=== PATIENT | female | born 1940 | race Caucasian/White ===

== ENCOUNTER → 2024-07-15 | Outpatient (CLI) | payer OTHER, MEDICAID, SELFPAY ==
[2024-07-15 09:38] LABS: Collection Type, Urine Clean Catch
[2024-07-15 10:10] LABS: Basophils % (Auto) 1 % (0-2.5); Eosinophils # (Auto) 0.1 Thou/mm3 (0.0-0.5); Eosinophils % (Auto) 2 % (0-10); Hematocrit 36.8 % (36.0-46.0); Immature Granulocytes % (Auto) 0 % (0-0); Immature Granulocytes Auto 0.01 Thou/mm3 (0.00-0.00); Lymphocytes # (Auto) 1.7 Thou/mm3 (1.0-4.8); Lymphocytes % (Auto) 39 % (10-50); Mean Corpuscular HGB Conc 32.6 g/dl (31.0-37.0); Mean Corpuscular Hemoglobin 26.5 pg (25.0-35.0); Mean Corpuscular Volume 81 fL (80-100); Monocytes # (Auto) 0.5 Thou/mm3 (0.0-0.8); Monocytes % (Auto) 12 % (0-12); Neutrophils % (Auto) 47 % (37-80); Nucleated Red Blood Cell % 0 /100 WBC (0); Platelet Count 153 Thou/mm3 (140-440); RDW Standard Deviation 43.6 fL (36.4-46.3); Red Blood Count 4.52 Miln/mm3 (4.00-5.20); White Blood Count 4.4 Thou/mm3 (3.6-11.0)
[2024-07-15 10:19] LABS: Glucose Estimated Average 120 mg/dL (80-131); Hemoglobin A1C 5.8 % Hgb (4.8-6.0)
[2024-07-15 10:20] LABS: Bilirubin,Urine Negative (Negative); Blood,Urine Negative (Negative); Clarity,Urine Clear (Clear/Hazy); Color,Urine Lt-Yellow (Lt Yel-Yel); Glucose, Urine Negative (Negative); Ketones,Urine Negative (Negative); Leukocyte Esterase,Urine Positive (Negative); Nitrite,Urine Negative (Negative); PH,Urine 6.5 (5.0-7.0); Protein,Urine Negative (Neg - Trace); RBC,Urine 3 /hpf (0-3); Specific Gravity,Urine 1.015 (1.001-1.035); Squamous Epithelial Cell,Urine 2 /hpf (0-5); Urobilinogen,Urine Negative mg/dL (0.0-1.0); WBC,Urine 3 /hpf (0-5)
[2024-07-15 10:46] LABS: Alanine Aminotransferase 11 U/L (10-49); Alkaline Phosphatase 54 U/L (46-116); Anion Gap 5 (7-16); Aspartate Amino Transferase 12 U/L (0-34); BUN/Creatinine Ratio 18 Ratio (12-20); Bilirubin,Total 0.4 mg/dL (0.3-1.2); Blood Urea Nitrogen 14 mg/dL (9-23); Cardiac Risk Estimate 4.3 RATIO (3.7-5.6); Chloride 108 mMol/L (98-107); Cholesterol 173 mg/dL (132-200); Creatinine (Component) 0.8 mg/dL (0.6-1.3); Glucose 93 mg/dL (74-106); HDL Cholesterol 40 mg/dL (40-60); LDL Cholesterol,Calculated 111 mg/dL (0-130); Osmolality,Calculated 283 (275-295); Potassium 4.3 mMol/L (3.4-5.1); Sodium 142 mMol/L (136-145); Thyroid Stimulating Hormone 5.11 uIU/mL (0.55-4.78); Triglycerides 109 mg/dL (30-150); eGFR > 60 See Note
== END | disposition home or self-care (01) ==
LOC: COPL 09:08
PROVIDERS: PCP Family Medicine; Referring Provider Family Medicine; Visit Provider Family Medicine
DX: Z00.00 Encounter for general adult medical examination without abnormal findings (principal); E78.2 Mixed hyperlipidemia; Z83.3 Family history of diabetes mellitus
CPT/HCPCS: 36415; 80053; 80061; 81001; 83036; 84443; 85025

== ENCOUNTER → 2024-09-01 | Outpatient (CLI) | payer OTHER, MEDICAID, SELFPAY ==
--- NOTE | 2024-09-01 13:30 | XR_ITS ---
Examination: Screening digital mammography, bilateral Computer aided detection 3-D breast Tomosynthesis, bilateral Date and time of exam: August 1302 hours Compared to mammograms dating to June 24, 2023 Indication: Screening Technique: Nonmagnified MLO, CC views of the breasts to been obtained, reconstructed from 3-D Tomosynthesis images. R2 computer aided detection program utilized for evaluation of suspicious masses and/or abnormal calcifications. 3-D Tomosynthesis images obtained. Findings: The breasts are heterogeneously dense, which may obscure small masses Grouped microcalcifications upper outer left breast posterior depth 10 mm focal asymmetry upper right breast anterior depth Impression: BI-RADS Category 0: Incomplete: Need additional imaging evaluation 10 mm focal asymmetry upper outer right breast anterior depth, recommend follow-up spot tomographic views Recommend follow-up spot magnification views of grouped microcalcifications upper outer left breast Recommend bilateral breast sonography follow-up to complete the workup.
--- NOTE | 2024-09-01 13:45 | XR_ITS ---
Examination: Bone densitometry Date and time of exam:September 01, 2024 1322 hours INDICATIONS: Hysterectomy age 22 left breast carcinoma diagnosis Technique: Lumbar spine and hip total bone mineralization values of an calculated. Peak reference and age match control results have been displayed. Findings: Lumbar spine total bone mineralization is1.104 gm/cm2. This is 0.5 standard deviations above peak reference. This is 3.3 standard deviations above age-matched controls. Hip total bone mineralization is 0.863 gm/cm2 This is 0.7 standard deviations below peak reference. This is 1.5 standard deviations above age-matched controls Impression: There is normal mineralization based on lumbar spine measurements. There is normal mineralization based on hip measurements
== END | disposition home or self-care (01) ==
PROVIDERS: PCP Family Medicine; Referring Provider Family Medicine; Visit Provider Family Medicine
DX: Z12.31 Encounter for screening mammogram for malignant neoplasm of breast (principal); R92.0 Mammographic microcalcification found on diagnostic imaging of breast; N64.89 Other specified disorders of breast; M81.0 Age-related osteoporosis without current pathological fracture
CPT/HCPCS: 77063; 77067; 77080

== ENCOUNTER → 2024-09-30 | Outpatient (CLI) | payer OTHER, MEDICAID, SELFPAY ==
--- NOTE | 2024-09-30 15:30 | XR_ITS ---
Examination: MRI lumbar spine without contrast Date and time of exam: September 30, 2024 1535 hours Comparison March 03, 2024 INDICATIONS: Low back pain radiating down both legs numbness and paresthesias in both legs beginning 15 years ago Technique: Multiple MRI axial and sagittal sections lumbar spine. Sagittal T2-weighted images, TR 3500, TE 118 T1 weighted transverse sections, TR 688 T8.5, T2-weighted sagittal sections T1 weighted sagittal sections TR 621, TE 30 T2 axial sections, TR 4, 190, TE 84. Findings: Grade 1 anterolisthesis L4 on L5 No lumbar fracture Normal marrow signal lumbar vertebral bodies Diffuse lumbar disc desiccation Mild to moderate disc narrowing L3-L4, L4-L5 L5-S1 5 mm central lumbar disc bulge extending to the right foraminal region with moderate right L5 ganglionic compression L4-L5 severe overall spinal stenosis, axial image 5, 6 mm central lumbar disc bulge, facet arthropathy and thickening of ligamentum flavum with mild bilateral L4 ganglionic compression L3-L4 foraminal disc bulges but no ganglionic compression L2-L3 no disc protrusion The longitudinal disc protrusion IMPRESSION: L5-S1 5 mm simple lumbar disc bulge extending to the right foraminal region with moderate right L5 ganglionic compression L4-L5 severe overall spinal stenosis, including mild bilateral L4 ganglionic compression
== END | disposition home or self-care (01) ==
LOC: SMRI 14:38
PROVIDERS: PCP Nurse Practitioner Family; Referring Provider Nurse Practitioner Family; Visit Provider Nurse Practitioner Family
DX: G95.20 Unspecified cord compression (principal); M48.061 Spinal stenosis, lumbar region without neurogenic claudication
CPT/HCPCS: 72148

== ENCOUNTER → 2024-10-03 | Outpatient (CLI) | payer OTHER, MEDICAID, SELFPAY ==
--- NOTE | 2024-10-03 10:00 | XR_ITS ---
Examination: Breast ultrasound complete, bilateral Date and time of exam: October 03, 2024 1042 hours INDICATIONS: Mammogram September 01, 2024 10 mm focal asymmetry upper outer right breast Technique: Real-time grayscale ultrasonographic imaging bilateral breasts, including all 4 quadrants as well as nipple retroareolar and axillary regions. Findings: Sonographic images right breast 10:00 nodule circumscribed 5 x 6 Sonographic images left breast 3:00 nodule lobular margins 11 x 7 mm IMPRESSION: BI-RADS Category 3: Probably benign findings One additional bilateral 6 month breast sonography follow-up is needed to document stability of nodules described above
--- NOTE | 2024-10-03 11:00 | XR_ITS ---
Examination: Diagnostic digital mammography, bilateral Computer aided detection 3-D breast Tomosynthesis, bilateral Date and time of exam: October 03, 2024 1109 hours INDICATIONS: Mammogram September 01, 2024 10 mm focal asymmetry upper outer right breast, grouped microcalcifications upper outer left breast Technique: Nonmagnified MLO, CC views of the breasts to been obtained, reconstructed from 3-D Tomosynthesis images. R2 computer aided detection program utilized for evaluation of suspicious masses and/or abnormal calcifications. 3-D Tomosynthesis images obtained. Findings: The breasts are heterogeneously dense, which may obscure small masses No suspicious mass right breast confirmed Grouped suspicious microcalcifications are confirmed upper outer left breast Impression: BI-RADS Category 4: Suspicious for malignancy Suspicious grouped microcalcifications are confirmed upper outer left breast, biopsy is needed to exclude breast carcinoma, these calcifications are amenable to stereotactic breast biopsy for diagnosis.
== END | disposition home or self-care (01) ==
PROVIDERS: PCP Family Medicine; Referring Provider Family Medicine; Visit Provider Family Medicine
DX: R92.343 Mammographic extreme density, bilateral breasts (principal); R92.0 Mammographic microcalcification found on diagnostic imaging of breast; N63.25 Unspecified lump in the left breast, overlapping quadrants; N63.11 Unspecified lump in the right breast, upper outer quadrant
CPT/HCPCS: 76641; 77062; 77066; G0279

== ENCOUNTER → 2024-10-26 | Outpatient (CLI) | payer OTHER, MEDICAID, SELFPAY ==
[2024-10-26 08:39] LABS: Alanine Aminotransferase 8 U/L (10-49); Albumin, Serum 3.9 gm/dL (3.4-4.8); Albumin/Globulin Ratio 2.2 (1.2-2.2); Alkaline Phosphatase 53 U/L (46-116); Anion Gap 7 (7-16); BUN/Creatinine Ratio 16 Ratio (12-20); Bilirubin,Total 0.4 mg/dL (0.3-1.2); Blood Urea Nitrogen 11 mg/dL (9-23); Calcium 8.7 mg/dL (8.3-10.6); Calcium (Corrected) 8.8 mg/dL (8.5-10.1); Carbon Dioxide 28.6 mMol/L (20.0-31.0); Cardiac Risk Estimate 3.8 RATIO (3.7-5.6); Chloride 110 mMol/L (98-107); Cholesterol 141 mg/dL (132-200); Creatinine (Component) 0.7 mg/dL (0.6-1.3); Globulin 1.8 gm/dL (2.3-3.5); Glucose 96 mg/dL (74-106); HDL Cholesterol 37 mg/dL (40-60); LDL Cholesterol,Calculated 85 mg/dL (0-130); Osmolality,Calculated 289 (275-295); Potassium 4.1 mMol/L (3.4-5.1); Sodium 146 mMol/L (136-145); Total Protein 5.7 gm/dL (5.7-8.2); Triglycerides 93 mg/dL (30-150); eGFR > 60 See Note
== END | disposition home or self-care (01) ==
LOC: COPL 06:56
PROVIDERS: PCP Family Medicine; Referring Provider Family Medicine; Visit Provider Family Medicine
DX: E78.2 Mixed hyperlipidemia (principal)
CPT/HCPCS: 36415; 80053; 80061

== ENCOUNTER → 2024-10-27 | Outpatient (CLI) | payer OTHER, MEDICAID, SELFPAY ==
[2024-10-26 09:00] LABS: Basophils % (Auto) 1 % (0-2.5); Eosinophils # (Auto) 0.1 Thou/mm3 (0.0-0.5); Eosinophils % (Auto) 1 % (0-10); Hematocrit 35.1 % (36.0-46.0); Hemoglobin 11.4 g/dL (12.0-16.0); Immature Granulocytes % (Auto) 0 % (0-0); Lymphocytes # (Auto) 1.5 Thou/mm3 (1.0-4.8); Lymphocytes % (Auto) 36 % (10-50); Mean Corpuscular HGB Conc 32.5 g/dl (31.0-37.0); Mean Corpuscular Hemoglobin 27.4 pg (25.0-35.0); Mean Corpuscular Volume 84 fL (80-100); Monocytes # (Auto) 0.5 Thou/mm3 (0.0-0.8); Monocytes % (Auto) 11 % (0-12); Neutrophils # (Auto) 2.2 Thou/mm3 (1.8-7.7); Neutrophils % (Auto) 51 % (37-80); Nucleated Red Blood Cell % 0 /100 WBC (0); Platelet Count 129 Thou/mm3 (140-440); RDW Standard Deviation 44.7 fL (36.4-46.3); Red Blood Count 4.16 Miln/mm3 (4.00-5.20); White Blood Count 4.3 Thou/mm3 (3.6-11.0)
[2024-10-26 09:06] LABS: Partial Thromboplastin Time 25.8 Seconds (22.0-36.0); Prothrombin Time 11.1 Seconds (9.0-12.2)
--- NOTE | 2024-10-27 08:30 | XR_ITS ---
Examination: Stereotactic guided vacuum assisted left breast biopsy with clip placement Specimen radiograph Date and time of exam:October 27, 2024 0916 hours INDICATIONS: Mammogram October 03, 2024 BI-RADS 4 suspicious microcalcifications upper outer left breast Timeout performed, documenting correct patient, order, referring physician, patient's site and reason for procedure, allergies to medications Informed consent provided. Time out performed Technique: The lesion left breast was localized with a stereotactic apparatus. Local anesthesia was obtained after prepping the skin at the entrance site and applying sterile drape Maximum sterile barrier technique. 4 core biopsies were then obtained, vacuum assisted, stereotactically guided, at the lesion site. Specimens appear adequate. Stereotactic breast marker was introduced at the lesion site Estimated blood loss 2 cc. Patient tolerated the procedure well and appeared in satisfactory and stable condition at completion of the procedure Pathology report to follow Impression: Successful stereotactic breast biopsy as described above. Specimen radiograph contains the biopsied suspicious microcalcifications.
== END | disposition home or self-care (01) ==
LOC: CDIM 07:54
PROVIDERS: Radiology Diagnostic Radiology; PCP Family Medicine; Referring Provider Family Medicine; Visit Provider Family Medicine
DX: R92.0 Mammographic microcalcification found on diagnostic imaging of breast (principal); D24.2 Benign neoplasm of left breast; N60.12 Diffuse cystic mastopathy of left breast
CPT/HCPCS: 36415; 85025; 85610; 85730; A4649

== ENCOUNTER → 2025-03-06 | Outpatient (CLI) | payer OTHER, MEDICAID, SELFPAY ==
[2025-03-06 08:48] LABS: Free T3 2.1 pg/mL (2.3-4.2); Free T4 (Free Thyroxine) 1.06 ng/dL (0.89-1.76); Thyroid Stimulating Hormone 4.83 uIU/mL (0.55-4.78)
== END | disposition home or self-care (01) ==
LOC: COPL 06:43
PROVIDERS: PCP Family Medicine; Referring Provider Family Medicine; Visit Provider Family Medicine
DX: R94.6 Abnormal results of thyroid function studies (principal)
CPT/HCPCS: 36415; 84439; 84443; 84481

== ENCOUNTER → 2025-05-04 | Outpatient (CLI) | payer OTHER, MEDICAID, SELFPAY ==
--- NOTE | 2025-05-04 09:50 | XR_ITS ---
Examination: Abdomen AP single view Technique: AP portable supine abdomen, single view Exam date and time: May 04, 2025, 1048 hours INDICATIONS: Constipation 1 week. FINDINGS: Moderate stool throughout the colon Iliac endoluminal stents Minimal small bowel ileus No free air IMPRESSION: Minimal small bowel ileus
== END | disposition home or self-care (01) ==
LOC: CDIM 09:41
PROVIDERS: PCP Family Medicine; Referring Provider Specialist; Visit Provider Family Medicine
DX: K56.7 Ileus, unspecified (principal)
CPT/HCPCS: 74018